=== PATIENT | female | born 1965 | race African-American/Black ===

== ENCOUNTER 2018-06-09 20:34 | Emergency (ER) | payer SELFPAY ==
[~2018-06-09] VITALS: Ht 157.5 cm; Wt 136.0 kg
[2018-06-09 22:53] LABS: CLARITY URINE CLOUDY (CLEAR); KETONES URINE 2+ (NEGATIVE); LEUKOCYTE ESTERASE URINE 2+ (NEGATIVE); NITRITE URINE NEGATIVE (NEGATIVE); OCCULT BLOOD URINE 3+ (NEGATIVE); PROTEIN URINE 2+ (NEGATIVE); SPECIFIC GRAVITY URINE 1.021 (1.005-1.030)
[2018-06-09 22:56] LABS: COLOR URINE AMBER (YELLOW)
[2018-06-09 23:03] LABS: *AMPHETAMINES SCREEN URINE NEGATIVE (NEGATIVE); *BARBITURATES SCREEN URINE NEGATIVE (NEGATIVE); *BENZODIAZEPINES SCREEN URINE NEGATIVE (NEGATIVE); *COCAINE SCREEN URINE NEGATIVE (NEGATIVE); METHADONE URINE SCREEN NEGATIVE (NEGATIVE); OPIATES URINE SCREEN NEGATIVE (NEGATIVE)
[2018-06-09 23:04] LABS: CANNABINOID URINE SCREEN NEGATIVE (NEGATIVE); PHENCYCLIDINE URINE SCREEN NEGATIVE (NEGATIVE)
[2018-06-09 23:31] LABS: BASOPHILS % 0.9 % (0.0-2.0); CHLORIDE 98 mEq/L (98-107); EOSINOPHILS % 1.1 % (0.0-5.0); HEMOGLOBIN. 12.2 g/dL (12.0-16.0); LYMPHOCYTES % 18.3 % (20.0-50.0); MEAN CORPUSCULAR HEMOGLOBIN 24.4 pg (28.0-32.0); MEAN CORPUSCULAR VOLUME 77.7 fL (81.0-99.0); MEAN PLATELET VOLUME 8.5 fl (7.4-10.4); MONOCYTES % 7.1 % (2.0-8.0); NEUTROPHILS % 72.6 % (40.0-76.0); PLATELET 287 x1000/uL (130-400); RED BLOOD CELL COUNT 5.02 mill/uL (4.2-5.4); RED CELL DISTRIBUTION WIDTH 21.4 % (11.6-14.6)
[2018-06-09 23:35] LABS: ETHANOL BLOOD < 10 mg/dL
[2018-06-10] MEDS ORDERED: ACETAMINOPHEN 325MG TABLET PO ONE (00:45)
[2018-06-10] MEDS ORDERED: IOHEXOL-350 100 ML BOTTLE ONE (01:54)
[2018-06-10] MEDS ORDERED: SODIUM CHLORIDE 0.9% 1,000 ML IV NR (02:10)
[2018-06-10] MEDS ORDERED: CEFTRIAXONE 1 G PREMIX 50 ML IV NR (02:15)
[2018-06-10 05:53] VITALS: BP 181/87
== END 2018-06-10 06:10 | disposition home or self-care (01) ==
LOC: ER 20:34
DX: N39.0 Urinary tract infection, site not specified (principal); R07.9 Chest pain, unspecified; R53.1 Weakness; E11.9 Type 2 diabetes mellitus without complications; I10 Essential (primary) hypertension
CPT/HCPCS: 36415; 71045; 71275; 80053; 80305; 81003; 81025; 82962; 83605; 83690; 83880; 84484; 85025; 85379; 87086; 93005; 96365; 99285; G0482; J0696; Q9967

== ENCOUNTER 2020-11-27 20:25 | Inpatient (IN) | payer OTHER ==
[~2020-11-27] VITALS: Ht 160 cm; Wt 133.1 kg
[2020-11-27] MEDS ORDERED: ENALAPRIL 1.25MG/ML VIAL 1ML IV SCH (21:00)
[2020-11-27] MEDS ORDERED: ENALAPRIL 2.5MG/2ML VIAL 2ML IV ONE (21:00)
[2020-11-27 21:27] LABS: BASOPHILS % 0.9 % (0.0-2.0); EOSINOPHILS % 2.7 % (0.0-5.0); HEMATOCRIT. 36.4 % (36.0-48.0); HEMOGLOBIN. 11.5 g/dL (12.0-16.0); LYMPHOCYTES % 29.5 % (20.0-50.0); MEAN CORPUSCULAR HEMOGLOBIN 25.2 pg (28.0-32.0); MEAN CORPUSCULAR VOLUME 79.8 fL (81.0-99.0); MEAN PLATELET VOLUME 8.3 fl (7.4-10.4); NEUTROPHILS % 58.9 % (40.0-76.0); PLATELET 264 x1000/uL (130-400); RED BLOOD CELL COUNT 4.56 mill/uL (4.2-5.4); RED CELL DISTRIBUTION WIDTH 21.2 % (11.6-14.6)
[2020-11-27 21:35] LABS: CHLORIDE 105 mEq/L (98-107)
[2020-11-27 21:39] LABS: ETHANOL BLOOD < 10 mg/dL
[2020-11-27] MEDS ORDERED: FUROSEMIDE 20MG/2ML VIAL IVP ONE (22:15)
[2020-11-27] MEDS ORDERED: POTASSIUM CHLORIDE 20MEQ TABLET SR PO ONE (22:15)
[2020-11-27] MEDS ORDERED: HYDROCODONE/ACETAMINOPHEN 5/325MG TABLET PO ONE (22:45)
[2020-11-27 23:05] LABS: *AMPHETAMINES SCREEN URINE NEGATIVE (NEGATIVE); *BARBITURATES SCREEN URINE NEGATIVE (NEGATIVE); *BENZODIAZEPINES SCREEN URINE NEGATIVE (NEGATIVE); *COCAINE SCREEN URINE NEGATIVE (NEGATIVE); METHADONE URINE SCREEN NEGATIVE (NEGATIVE)
[2020-11-27 23:06] LABS: CANNABINOID URINE SCREEN NEGATIVE (NEGATIVE); OPIATES URINE SCREEN NEGATIVE (NEGATIVE); PHENCYCLIDINE URINE SCREEN NEGATIVE (NEGATIVE)
[2020-11-28] MEDS ORDERED: DEXTROSE 50% WATER 50ML SYRINGE IV PRN (04:15)
[2020-11-28 04:55] VITALS: BP 174/86
[2020-11-28] MEDS: BLOOD SUGAR DIAGNOSTIC STRIP TEST SCH ×4 (07:01→20:39)
[2020-11-28] MEDS: INSULIN LISPRO (MEDIUM DOSE) 100 UNITS/ML SUBCUT SCH ×4 (07:04→20:39)
[2020-11-28 08:00] VITALS: BP 171/81
[2020-11-28] MEDS ORDERED: ONDANSETRON HCL 4MG/2ML INJ IV PRN (09:00)
[2020-11-28] MEDS ORDERED: HYDRALAZINE HCL 100MG TABLET PO SCH (09:00)
[2020-11-28] MEDS ORDERED: LISINOPRIL 20MG TABLET PO SCH (09:00)
[2020-11-28] MEDS: AMLODIPINE 10MG TABLET PO SCH (09:03)
[2020-11-28] MEDS: METFORMIN HCL 500MG TABLET PO SCH ×2 (09:04→16:36)
[2020-11-28] MEDS: ACETAMINOPHEN 325MG TABLET PO PRN ×2 (09:04→16:36)
[2020-11-28] MEDS: LISINOPRIL 20MG TABLET PO SCH ×2 (09:04→20:38)
[2020-11-28 10:00] VITALS: BP 171/81
[2020-11-28 12:00] VITALS: BP 140/68
[2020-11-28] MEDS ORDERED: CLONIDINE 0.1MG TABLET PO PRN (12:45)
[2020-11-28] MEDS: HYDRALAZINE HCL 100MG TABLET PO SCH ×2 (13:18→21:07)
[2020-11-28 16:00] VITALS: BP 159/76
[2020-11-28 20:00] VITALS: BP_SYST 184; BP_SYST 190; BP_DIAS 93; BP_DIAS 96; BP_DIAS 97
[2020-11-29] VITALS (8 sets, daily range): BP systolic 142–179; BP diastolic 78–98
[2020-11-29] MEDS: ACETAMINOPHEN 325MG TABLET PO PRN ×2 (02:10→13:03)
[2020-11-29] MEDS: METFORMIN HCL 500MG TABLET PO SCH ×3 (06:28→17:03)
[2020-11-29] MEDS: BLOOD SUGAR DIAGNOSTIC STRIP TEST SCH ×4 (06:28→21:07)
[2020-11-29] MEDS: INSULIN LISPRO (MEDIUM DOSE) 100 UNITS/ML SUBCUT SCH ×4 (06:28→21:00)
[2020-11-29] MEDS: HYDRALAZINE HCL 100MG TABLET PO SCH ×3 (06:29→21:07)
[2020-11-29] MEDS: AMLODIPINE 10MG TABLET PO SCH (08:45)
[2020-11-29] MEDS: LISINOPRIL 20MG TABLET PO SCH ×2 (08:45→21:07)
[2020-11-29] MEDS: CLONIDINE 0.1MG TABLET PO SCH ×2 (13:00→21:07)
[2020-11-29] MEDS ORDERED: LISI20TA31 PO (16:48)
[2020-11-29] MEDS ORDERED: AMLO10TA80 PO (16:48)
[2020-11-29] MEDS ORDERED: CLON0.2T MT (16:48)
[2020-11-29] MEDS ORDERED: METF-416 MT (16:49)
[2020-11-30] VITALS: BP 158/88
[2020-11-30 04:00] VITALS: BP 165/89
[2020-11-30] MEDS: ACETAMINOPHEN 325MG TABLET PO PRN (06:25)
[2020-11-30] MEDS: HYDRALAZINE HCL 100MG TABLET PO SCH (06:25)
[2020-11-30] MEDS: CLONIDINE 0.1MG TABLET PO SCH (06:25)
[2020-11-30] MEDS: BLOOD SUGAR DIAGNOSTIC STRIP TEST SCH (06:33)
[2020-11-30] MEDS: INSULIN LISPRO (MEDIUM DOSE) 100 UNITS/ML SUBCUT SCH (06:34)
[2020-11-30 08:00] VITALS: BP 162/84
[2020-11-30] MEDS: METFORMIN HCL 500MG TABLET PO SCH (08:17)
[2020-11-30] MEDS: AMLODIPINE 10MG TABLET PO SCH (08:17)
[2020-11-30] MEDS: LISINOPRIL 20MG TABLET PO SCH (08:18)
[2020-11-30] MEDS ORDERED: CLONIDINE 0.2MG TABLET PO SCH (14:00)
== END 2020-11-30 11:30 | disposition home or self-care (01) | DRG 74 ==
LOC: ER 20:25 → 5WST 22:36 → EDBEDREQ 22:47 → EDBEDREQTM 22:47 → ENRESERV 11-28 02:29
PROVIDERS: ADMIT Internal Medicine; ATTEND Internal Medicine
DX: G90.8 Other disorders of autonomic nervous system (principal); Z68.43 Body mass index [BMI] 50.0-59.9, adult; I16.0 Hypertensive urgency; E11.9 Type 2 diabetes mellitus without complications; E66.9 Obesity, unspecified; E87.6 Hypokalemia; Z98.891 History of uterine scar from previous surgery; I11.0 Hypertensive heart disease with heart failure; I50.9 Heart failure, unspecified; Z82.49 Family history of ischemic heart disease and other diseases of the circulatory system; Z71.3 Dietary counseling and surveillance; Z79.899 Other long term (current) drug therapy
CPT/HCPCS: 36415; 70551; 71045; 80053; 80061; 80305; 80320; 82962; 83036; 83880; 84443; 84484; 85025; 93005; 99285; J1815; J1940; J3490; G0480